=== PATIENT | female | born 1965 | race Caucasian/White ===

== ENCOUNTER 2016-12-11 15:54 | Emergency (ER) | payer BC ==
[~2016-12-11] VITALS: Ht 162.6 cm; Wt 74.5 kg
[2016-12-11 15:58] VITALS: BP 133/74; TEMP 97.4
[2016-12-11] MEDS ORDERED: PRILOSEC 20MG20 MG PO (16:15)
[2016-12-11] MEDS ORDERED: COZAAR100 MG PO (16:16)
[2016-12-11] MEDS ORDERED: TOPROL XL200 MG PO (16:16)
[2016-12-11] MEDS ORDERED: KLONOPIN 0.5MG0.5 MG PO (16:17)
[2016-12-11] MEDS ORDERED: FLONASE NASAL S16 GM NS (16:17)
[2016-12-11] MEDS ORDERED: AZURETTE1 TAB PO (16:17)
[2016-12-11 18:03] VITALS: PULSE 64
== END 2016-12-11 18:10 | disposition home or self-care (01) ==
LOC: COL.ER 15:54
DX: S62.602B Fracture of unspecified phalanx of right middle finger, initial encounter for open fracture (principal); I10 Essential (primary) hypertension; K21.9 Gastro-esophageal reflux disease without esophagitis; W23.1XXA Caught, crushed, jammed, or pinched between stationary objects, initial encounter; Y93.89 Activity, other specified; Z23 Encounter for immunization